=== PATIENT | female | born 1995 | race Caucasian/White ===

== ENCOUNTER 2017-04-05 22:43 | Emergency (ER) | payer OTHER ==
[2017-04-05 22:50] VITALS: TEMP 98.4
[2017-04-05] MEDS ORDERED: PROMETHAZINE HCL 25 MG/ML INJ IVP ONE (23:00)
[2017-04-05] MEDS ORDERED: NS 1,000 ML IV ONE (23:00)
--- NOTE | 2017-04-05 23:02 | EDPHY ---
H & P Stated Complaint: ABD PAIN 2 MONTHS HAD US, IS TO SEE A SPECIAL MD ECT ECT Source: Patient Exam Limitations: No limitations - Personal History LMP (Females 10-55): Extended Cycle BCP/Inj Current Tetanus/Diphtheria Vaccine: Yes Current Tetanus Diphtheria and Acellular Pertussis (TDAP): Yes - Medical/Surgical History Hx Asthma: No Hx Chronic Respiratory Disease: No Hx Diabetes: No Hx Cardiac Disease: No Hx Renal Disease: No Hx Cirrhosis: No Hx Alcoholism: No Hx HIV/AIDS: No Hx Splenectomy or Spleen Trauma: No Other PMH: MIGRAINES, DEPRESSION ANXIETY - Social History Smoking Status: Never smoked Time Seen by Provider: 04/05/17 23:01 HPI/ROS: HPI: This is a 21-year-old female who presents with Chief Complaint: ABD PAIN 2 MONTHS HAD US, IS TO SEE A SPECIAL MD ECT ECT Location: Left lower quadrant Quality: Pain Duration: Today Signs and Symptoms: no fever, + nausea, no vomiting, no hematemesis, no blood in stool, no abdominal bloating, no diarrhea, no back pain, no urinary symptoms , no vaginal bleeding/discharge, no indigestion, no chest pain, no shortness of breath Timing: Acute on chronic Severity: Moderate Context: Patient has a history of abdominal pain and has a with of the [facility] of the of this month for chronic abdominal pain. Patient presents today with 1 day history since last night of left lower quadrant pain that is nonradiating in trick, constant, moderate. Patient reports that around 8:00 p.m. she tried to have a bowel movement and was hard. Denies any blood in stool /fever/vomiting/diarrhea. She reports that in the past it was thought that she had the peptic ulcer disease and she could PPI for 2 weeks but never had an EGD. She was never on Carafate. Patient reports that her bowels alternate between constipation and diarrhea. She does admit to being under lot of stress and anxiety. Denies urinary symptoms/vaginal bleeding/vaginal discharge. On extended control does not have a regular menses. She is a poor appetite but denies any food intolerances. No recent foreign travel. No concern for food poisoning. + passing flatus. Denies any history of abdominal surgeries. She reports that she has had multiple imaging over the last several months including ultrasound and CT scans that showed no gallbladder disease/ appendicitis/pancreatitis/diverticulitis. Modifying Factors: None Comment: ROS: see HPI Constitutional: No fever, no chills, no weight loss Eyes: No blurred vision Respiratory: No shortness of breath, no cough Cardiovascular: No chest pain, no palpitations Gastrointestinal: + nausea, no vomiting, no diarrhea, no hematemesis, no blood in stool Genitourinary: No dysuria, no blood in urine Extremities: No myalgias, no edema Neurologic: No weakness, no numbness Skin: No rashes, no petechiae Hematologic: No bruising, no bleeding MEDICAL/SURGICAL/SOCIAL HISTORY: Medical history: Migraines, depression, anxiety. Surgical history: Denies Social history: Student CONSTITUTIONAL: Well-appearing flat affect young adult white female, awake and alert, no obvious distress HEENT: Atraumatic and normocephalic, PERRL, EOMI. Tympanic membranes clear. Oropharynx clear, no exudate and moist pink mucosa. Airway patent. No lymphadenopathy. No meningismus. Cardiovascular: Normal S1/S2, mild tachycardia, regular rhythm, without murmur rub or gallop. PULMONARY/CHEST: Symmetrical and nontender. Clear to auscultation bilaterally. Good air movement. No accessory muscle usage. ABDOMEN: Soft, nondistended, mild left lower quadrant tenderness, no rebound, no guarding, no peritoneal signs, no masses or organomegaly. No CVAT. EXTREMITIES: 2/2 pulses, strength 5/5, no deformities, no clubbing, no cyanosis or edema. NEUROLOGICAL: no focal neuro deficits. GCS 15. SKIN: Warm and dry, no erythema. no rash. Good capillary refill. (Nasrin,Terra) Constitutional: Initial Vital Signs Temperature (C) 36.9 C 04/05/17 22:44 Heart Rate 108 H 04/05/17 22:44 Respiratory Rate 18 04/05/17 22:44 Blood Pressure 131/108 H 04/05/17 22:44 O2 Sat (%) 95 04/05/17 22:44 O2 Delivery Mode Room Air Allergies/Adverse Reactions: No Known Allergies Allergy (Unverified 04/05/17 22:50) Home Medications: Medication Instructions Recorded Control Pills 04/05/17 Loratadine [Claritin 10 mg] 10 mg PO DAILY 04/05/17 Cephalexin [Keflex (*)] 250 mg PO QID #28 cap 04/06/17 Ondansetron Odt [Zofran Odt 4 mg 4 mg PO Q4 PRN #12 tab 04/06/17 (*)] Medical Decision Making ED Course/Re-evaluation: Labs, IV fluids, urinalysis, CT abdomen and pelvis scan ordered Patient given 1 L normal saline, IV promethazine, GI cocktail, PO Protonix Urinalysis shows blood, ketones, 2+ bacteria; sent for urine culture; given p.o. Keflex and prescription same 1245: Reassessed patient who reports that nausea has subsided. Drink oral contrast without difficulty. Repeat abdominal exam is greatly improved; minimal tenderness. 1250: End of shift. Signed out to Dr. Martínez pending CT abdomen and pelvis scan results. Suspect discharge home with gastroenterology follow-up. This patient was seen under the supervision of my secondary supervising physician. The patient was seen in conjunction with Dr. Martínez, who saw and evaluated the patient. Patient's presentation, labs/imaging, treatment and plan of care were discussed with secondary supervising physician. (Libertad Alexandra) 0127: I was asked to follow-up this patient CT scan. The CT scan abdomen pelvis with p. o. and IV contrast has been reviewed. Report called to me by Dr. Gamino. Does not show any acute plantar process visualized. There is possibility of a 2 mm very small left distal ureteral stone versus phlebolith. I discussed this with the patient. Will place on antibiotics. Sent home with a urine strainer in case she has a stone. Will recommend follow up with Urology as well. Additionally return precautions discussed. She understands return emergency room if she develops worsening abdominal pain fever vomiting. (Ermias Martínez) Differential Diagnosis: Abdominal pain including but not limited to appendicitis, cholecystitis, gastritis, bowel obstruction, ureterolithiasis, constipation, irritable bowel and urinary tract infection. (Libertad Alexandra) - Data Points Laboratory Results: Laboratory Results 04/05/17 23:23 04/05/17 23:23 04/05/17 04/05/17 04/05/17 23:23 23:23 23:23 WBC 7.63 10^3/uL 10^3/uL (3.80-9.50) RBC 4.87 10^6/uL 10^6/uL (4.18-5.33) Hgb 16.3 g/dL g/dL (12.6-16.3) Hct 44.9 % % (38.0-47.0) MCV 92.2 fL fL (81.5-99.8) MCH 33.5 pg pg (27.9-34.1) MCHC 36.3 g/dL g/dL (32.4-36.7) RDW 12.2 % % (11.5-15.2) Plt Count 222 10^3/uL 10^3/uL (150-400) MPV 10.0 fL fL (8.7-11.7) Neut % (Auto) 85.8 % H % (39.3-74.2) Lymph % (Auto) 5.6 % L % (15.0-45.0) Walsh % (Auto) 7.1 % % (4.5-13.0) Eos % (Auto) 0.8 % % (0.6-7.6) Baso % (Auto) 0.3 % % (0.3-1.7) Nucleat RBC Rel Count 0.0 % % (0.0-0.2) Absolute Neuts (auto) 6.55 10^3/uL H 10^3/uL (1.70-6.50) Absolute Lymphs (auto) 0.43 10^3/uL L 10^3/uL (1.00-3.00) Absolute Monos (auto) 0.54 10^3/uL 10^3/uL (0.30-0.80) Absolute Eos (auto) 0.06 10^3/uL 10^3/uL (0.03-0.40) Absolute Basos (auto) 0.02 10^3/uL 10^3/uL (0.02-0.10) Absolute Nucleated RBC 0.00 10^3/uL 10^3/uL (0-0.01) Immature Gran % 0.4 % % (0.0-1.1) Immature Gran # 0.03 10^3/uL 10^3/uL (0.00-0.10) Sodium 140 mEq/L mEq/L (134-144) Potassium 3.9 mEq/L mEq/L (3.5-5.2) Chloride 107 mEq/L mEq/L (97-110) Carbon Dioxide 21 mEq/l L mEq/l (22-31) Anion Gap 12 mEq/L mEq/L (8-16) BUN 7 mg/dL mg/dL (7-23) Creatinine 0.7 mg/dL mg/dL (0.6-1.0) Estimated GFR > 60 Glucose 90 mg/dL mg/dL (70-100) Calcium 9.1 mg/dL mg/dL (8.5-10.4) Total Bilirubin 0.8 mg/dL mg/dL (0.1-1.4) Conjugated Bilirubin 0.2 mg/dL mg/dL (0.0-0.5) Unconjugated Bilirubin 0.6 mg/dL mg/dL (0.0-1.1) AST 18 IU/L IU/L (14-46) ALT 34 IU/L IU/L (9-52) Alkaline Phosphatase 63 IU/L IU/L (38-126) Total Protein 6.7 g/dL g/dL (6.3-8.2) Albumin 4.1 g/dL g/dL (3.5-5.0) Lipase 64 IU/L IU/L (23-300) Beta HCG, Qual NEGATIVE Urine Color Urine Appearance Urine pH Ur Specific Sebastian Urine Protein Urine Ketones Urine Blood Urine Nitrate Urine Bilirubin Urine Urobilinogen Ur Leukocyte Esterase Urine RBC Urine WBC Ur Epithelial Cells Urine Bacteria Urine Mucus Urine Glucose 04/05/17 23:00 WBC RBC Hgb Hct MCV MCH MCHC RDW Plt Count MPV Neut % (Auto) Lymph % (Auto) Walsh % (Auto) Eos % (Auto) Baso % (Auto) Nucleat RBC Rel Count Absolute Neuts (auto) Absolute Lymphs (auto) Absolute Monos (auto) Absolute Eos (auto) Absolute Basos (auto) Absolute Nucleated RBC Immature Gran % Immature Gran # Sodium Potassium Chloride Carbon Dioxide Anion Gap BUN Creatinine Estimated GFR Glucose Calcium Total Bilirubin Conjugated Bilirubin Unconjugated Bilirubin AST ALT Alkaline Phosphatase Total Protein Albumin Lipase Beta HCG, Qual Urine Color YELLOW Urine Appearance HAZY Urine pH 5.0 (5.0-7.5) Ur Specific Sebastian 1.025 (1.002-1.030) Urine Protein 1+ H (NEGATIVE) Urine Ketones 1+ H (NEGATIVE) Urine Blood 3+ H (NEGATIVE) Urine Nitrate NEGATIVE (NEGATIVE) Urine Bilirubin NEGATIVE (NEGATIVE) Urine Urobilinogen NEGATIVE EU EU (0.2-1.0) Ur Leukocyte Esterase NEGATIVE (NEGATIVE) Urine RBC 15-25 /hpf H /hpf (0-3) Urine WBC 3-5 /hpf H /hpf (0-3) Ur Epithelial Cells TRACE /lpf /lpf (NONE-1+) Urine Bacteria 2+ /hpf H /hpf (NONE SEEN) Urine Mucus 1+ /lpf /lpf (NONE-1+) Urine Glucose NEGATIVE (NEGATIVE) Medications Given: Discontinued Medications Al Hydroxide/Mg Hydroxide (Maalox Susp) 30 ml PO ONCE ONE Stop: 04/05/17 23:53 Last Admin: 04/06/17 00:03 Dose: 30 ml Cephalexin HCl (Keflex) 500 mg PO EDNOW ONE PRN Reason: Protocol Stop: 04/06/17 00:42 Last Admin: 04/06/17 00:52 Dose: 500 mg Hyoscyamine Sulfate (Levsin, Hyomax-Sl) 0.25 mg PO ONCE ONE Stop: 04/05/17 23:53 Last Admin: 04/06/17 00:03 Dose: 0.25 mg Sodium Chloride (Ns) 1,000 mls @ 0 mls/hr IV EDNOW ONE; Wide Open PRN Reason: Protocol Stop: 04/05/17 23:01 Last Admin: 04/05/17 23:14 Dose: 1,000 mls Lidocaine (Lidocaine 2% Viscous) 15 ml PO ONCE ONE Stop: 04/05/17 23:53 Last Admin: 04/06/17 00:03 Dose: 15 ml Pantoprazole Sodium (Protonix) 40 mg PO EDNOW ONE Stop: 04/05/17 23:53 Last Admin: 04/06/17 00:03 Dose: 40 mg Promethazine HCl (Phenergan) 12.5 mg IVP EDNOW ONE Stop: 04/05/17 23:01 Last Admin: 04/05/17 23:14 Dose: 12.5 mg Departure - Departure Disposition: Home, Routine, Self-Care Clinical Impression: Chronic abdominal pain, Bacteria in urine, Kidney stone Irritable bowel Qualifiers: Irritable bowel syndrome type: with both diarrhea and constipation Qualified Code(s): K58.2 - Mixed irritable bowel syndrome Condition: Good Instructions: Urinary Tract Infection in Women (ED), Chronic Abdominal Pain (ED ), Kidney Stones (ED) Additional Instructions: Consume a minimum of 8-10 glasses of water or electrolyte fluid replacement drinks that include Gatorade, Powerade, Pedialyte. Eat a bland diet for the next 48 hours and then slowly advance as tolerated. Take Zofran 1 tab every 4 hours as needed for nausea, vomiting. Please take all of your Keflex until complete for urinary tract infection. Keep follow-up appointment with [facility] is on April 18 as previously scheduled. Referrals: Elías Fox MD [Medical Doctor] - 04/18/17 Nabil Cohen MD [Medical Doctor] - As per Instructions Prescriptions: Cephalexin [Keflex (*)] 250 mg PO QID #28 cap Ondansetron Odt [Zofran Odt 4 mg (*)] 4 mg PO Q4 PRN #12 tab PRN Reason: Nausea/Vomiting, Use 1st
[2017-04-05] MEDS ORDERED: IOPAMIDOL (ISOVUE-300) 100 ML BTL ONE (23:12)
[2017-04-05 23:31] LABS: PLATELET COUNT 222 10^3/uL (150-400)
[2017-04-05 23:39] VITALS: RESP 16
[2017-04-05] MEDS ORDERED: PANTOPRAZOLE SODIUM 40 MG TAB PO ONE (23:52)
[2017-04-05] MEDS ORDERED: MAG HYDROX/AL HYDROX/SIMETH 30 ML UDCUP PO ONE (23:52)
[2017-04-05] MEDS ORDERED: HYOSCYAMINE SULFATE 0.125 MG TAB PO ONE (23:52)
[2017-04-05] MEDS ORDERED: LIDOCAINE 2% VISCOUS 15 ML UDCUP PO ONE (23:52)
[2017-04-06] MEDS ORDERED: CEPHALEXIN 500 MG CAP PO ONE (00:41)
[2017-04-06 01:16] VITALS: BP 118/72; PULSE 75; O2SAT 96
== END 2017-04-06 01:46 | disposition home or self-care (01) ==
DX: N20.0 Calculus of kidney (principal); K58.2 Mixed irritable bowel syndrome; R82.71 Bacteriuria; E86.9 Volume depletion, unspecified
CPT/HCPCS: 96374; J2550; Q9967